=== PATIENT | female | born 1935 | race Caucasian/White ===

== ENCOUNTER 2017-09-09 10:28 | Inpatient (IN) | payer OTHER, MEDICARE ==
[~2017-09-09] VITALS: Ht 165.1 cm; Wt 54.4 kg
--- NOTE | ~2017-09-09 | EKG ---
[address] [place] [address] ELECTROCARDIOGRAM REPORT Name: LUNABERTHAMIGUELITO LEIGH Room #: 404-P [facility] IN M.R.#: [id number] Admission: 09/09/17 Attend Phys: Thaddeus Melvin MD Discharge: Date of : 31 Report #: [id number] THIS REPORT FOR: //name// [facility] Test Date: 2017-09-10 Test Time: 20:24:13 Pat Name: MIGUELITO ELIAS Department: Room: 404 Gender: F Title Department Manager: JLAMBPANCHO : 1935 Requested By: Thaddeus Melvin Order Number: [id number] MD: Rajinder Gar Measurements Intervals [place] Rate: 135 P: -2 MD: 84 QRS: -51 QRSD: 86 T: 88 QT: 332 QTc: 498 Interpretive Statements Sinus tachycardia Leftward axis Anteroseptal infarct, old Nonspecific ST and T wave abnormality Compared to ECG 03/13/2016 14:20:40 Atrial premature complexes are no longer present nonspecific change in the ST and T-wave segments Electronically Signed On 09-11-2017 8:06:43 CDT by Rajinder Gar [email or web address] <ELECTRONICALLY SIGNED> By: Rajinder Gar MD, [facility] 09/11/17805 23 23 Rajinder Gar MD, [facility] /EPI
[~2017-09-09 10:28] MED LIST: ALLEGRA ALLERG180 MG PO; ARICEPT 5 MG TAB5 MG PO; ATORVASTATIN CA80 MG PO; BACTRIM DS TAB1 EACH PO; CELEBREX 200 M200 M1 PO; LEVOTHYROXIN0.125 M1 PO; LIDODERM 5%1 PATC1 TRANSDERM; MACROBID 100 M100 M1 PO; NAMENDA XR PO; NORCO 5-325 TA1 EACH PO; NORVASC5 MG PO; POTASSIUM20 PO; PROTONIX40 M1 PO; XYZAL5 MG PO; ZOFRAN ODT4 MG PO; ZOLOFT50 MG PO; [UNRECOGNIZED DRUG - OTHER] PO
[2017-09-09 10:29] VITALS: BP 177/129
[2017-09-09 12:05] LABS: ABSOLUTE NEUTROPHILS 10.5 thou/uL (1.4-8.2); BASOPHILS 0.1 % (0.0-2.0); HEMATOCRIT 41.2 % (37.0-47.0); HEMOGLOBIN 13.8 gm/dL (12.0-15.0); MCH 33.3 pg (26.0-34.0); MCHC 33.4 g/dL (28.0-37.0); MCV 99.5 fL (80.0-100.0); MONOCYTES 8.6 % (1.0-8.0); PLATELET COUNT 151 thou/uL (150-400); POLYS 86.3 % (36.0-66.0); RBC 4.14 mil/uL (4.20-5.00); RDW 13.9 % (10.5-14.5); WBC 12.1 thou/uL (4.0-11.0)
[2017-09-09 12:07] LABS: CALCIUM 9.4 mg/dL (8.5-10.1); CREATININE 1.1 mg/dL (0.6-1.0); POTASSIUM 4.5 mmol/L (3.5-5.1)
[2017-09-09 12:13] LABS: ALBUMIN 3.9 g/dL (3.4-5.0); TOTAL BILIRUBIN 0.7 mg/dL (<0.1-1.0); TOTAL PROTEIN 7.4 g/dL (6.4-8.2)
[2017-09-09 12:20] LABS: APTT 22.2 Seconds (24.5-32.8); PROTIME 10.7 Seconds (9.3-11.4)
[2017-09-09 17:34] VITALS: BP 138/76
[2017-09-09 17:48] LABS: TSH 7.656 uIU/mL (0.358-3.740)
[2017-09-09 18:48] VITALS: BP 146/87
[2017-09-09 20:00] VITALS: BP 142/87
[2017-09-10 04:00] VITALS: BP 138/75; BP 156/77
[2017-09-10 05:07] LABS: CALCIUM 8.9 mg/dL (8.5-10.1); CREATININE 0.9 mg/dL (0.6-1.0); MAGNESIUM 1.1 mg/dL (1.8-2.4)
[2017-09-10 05:10] LABS: HEMATOCRIT 36.4 % (37.0-47.0); HEMOGLOBIN 12.2 gm/dL (12.0-15.0); MCH 33.8 pg (26.0-34.0); MCHC 33.6 g/dL (28.0-37.0); MCV 100.7 fL (80.0-100.0); PLATELET COUNT 134 thou/uL (150-400); RBC 3.62 mil/uL (4.20-5.00)
[2017-09-10 05:22] LABS: POTASSIUM 3.3 mmol/L (3.5-5.1)
[2017-09-10 07:52] VITALS: BP 168/88
[2017-09-10 08:20] LABS: ABSOLUTE NEUTROPHILS 7.1 thou/uL (1.4-8.2)
[2017-09-10 08:21] LABS: ANISOCYTOSIS 1+; LARGE PLATELETS FEW
[2017-09-10 16:49] VITALS: BP 176/76
[2017-09-10 21:08] VITALS: BP 145/87
[2017-09-11 04:12] VITALS: BP 160/90
[2017-09-11 05:33] LABS: HEMATOCRIT 35.5 % (37.0-47.0); MCHC 33.7 g/dL (28.0-37.0); RBC 3.52 mil/uL (4.20-5.00); RDW 14.1 % (10.5-14.5)
[2017-09-11 05:56] LABS: ALBUMIN 2.6 g/dL (3.4-5.0); ANION GAP 13 mmol/L (7-16); BUN 14 mg/dL (7-18); CALCIUM 8.3 mg/dL (8.5-10.1); CHLORIDE 104 mmol/L (98-107); CHOLESTEROL 164 mg/dL (<200); CO2 19 mmol/L (21-32); CREATININE 0.6 mg/dL (0.6-1.0); GLUCOSE 99 mg/dL (74-106); HDL CHOLESTEROL 116 mg/dL (>40); LDL CHOLESTEROL 36 mg/dL (<100); POTASSIUM 3.5 mmol/L (3.5-5.1); SGOT 101 U/L (15-37); SGPT 58 U/L (30-65); SODIUM 136 mmol/L (136-145); TC:HDL 1.4 Ratio (Not establshd); TOTAL BILIRUBIN 0.9 mg/dL (<0.1-1.0); TOTAL PROTEIN 6.1 g/dL (6.4-8.2); TRIGLYCERIDE 64 mg/dL (<150); VLDL 13 mg/dL (<40)
[2017-09-11 05:58] LABS: SERUM ASSESSMENT Clear
[2017-09-11 09:27] VITALS: BP 160/90
[2017-09-11 12:28] VITALS: BP 141/84
[2017-09-11 16:21] VITALS: BP 146/75
[2017-09-11 19:17] VITALS: BP 167/67
[2017-09-12 04:57] VITALS: BP 157/66
[2017-09-12 05:41] LABS: CALCIUM 8.6 mg/dL (8.5-10.1); CREATININE 0.6 mg/dL (0.6-1.0); MAGNESIUM 1.5 mg/dL (1.8-2.4); POTASSIUM 3.1 mmol/L (3.5-5.1)
[2017-09-12 07:38] VITALS: BP 176/92
[2017-09-12 16:53] VITALS: BP 164/83
[2017-09-12 19:33] VITALS: BP 145/75
[2017-09-13 04:00] VITALS: BP 167/72
[2017-09-13 08:39] VITALS: BP 190/77
[2017-09-13 08:46] VITALS: BP 190/77
[2017-09-13 16:05] VITALS: BP 167/96
[2017-09-13 20:00] VITALS: BP 163/92
[2017-09-14 07:40] VITALS: BP 176/118
[2017-09-14 10:17] VITALS: BP 155/88
[2017-09-14] MEDS ORDERED: ZOLOFT100 MG PO (11:10)
== END 2017-09-14 13:18 | DRG 562 ==
LOC: ER 10:28 → 4N 15:05 → EROBS 15:05 → 4N 18:04 → ENTRNSPT 09-13 15:27 → EDTRNSPTSTS 09-13 15:42 → SICU 09-13 16:40
PROVIDERS: Emergency Medicine; Hospitalist; Nurse Practitioner; Registered Nurse
PROC: 2W38X1Z Immobilization of Right Upper Extremity using Splint (ICD-10-PCS; principal; 2017-09-09)
PROC: 0RSJXZZ Reposition Right Shoulder Joint, External Approach (ICD-10-PCS; principal; 2017-09-09)
DX: S42.141A Displaced fracture of glenoid cavity of scapula, right shoulder, initial encounter for closed fracture (principal); G93.41 Metabolic encephalopathy; N17.9 Acute kidney failure, unspecified; S22.49XA Multiple fractures of ribs, unspecified side, initial encounter for closed fracture; M62.82 Rhabdomyolysis; E03.9 Hypothyroidism, unspecified; E78.5 Hyperlipidemia, unspecified; K21.9 Gastro-esophageal reflux disease without esophagitis; M19.90 Unspecified osteoarthritis, unspecified site; S43.004A Unspecified dislocation of right shoulder joint, initial encounter; R00.0 Tachycardia, unspecified; G30.9 Alzheimer's disease, unspecified; F02.80 Dementia in other diseases classified elsewhere, unspecified severity, without behavioral disturbance, psychotic disturbance, mood disturbance, and anxiety; I12.9 Hypertensive chronic kidney disease with stage 1 through stage 4 chronic kidney disease, or unspecified chronic kidney disease; E86.0 Dehydration; F41.9 Anxiety disorder, unspecified; Z66 Do not resuscitate; N18.9 Chronic kidney disease, unspecified; Z60.2 Problems related to living alone; Z88.6 Allergy status to analgesic agent; Z79.899 Other long term (current) drug therapy; W18.39XA Other fall on same level, initial encounter; Y93.89 Activity, other specified; Y92.000 Kitchen of unspecified non-institutional (private) residence as the place of occurrence of the external cause; Y99.8 Other external cause status
CPT/HCPCS: 10790; 15002

== ENCOUNTER 2017-10-06 20:48 | Emergency (ER) | payer OTHER, MEDICARE ==
[~2017-10-06] VITALS: Ht 165.1 cm; Wt 54.4 kg
[~2017-10-06 20:48] MED LIST changes: +ZOLOFT100 MG PO
== END 2017-10-07 00:15 | disposition home or self-care (01) ==
LOC: ER 20:48
DX: S01.01XA Laceration without foreign body of scalp, initial encounter (principal); I10 Essential (primary) hypertension; E78.5 Hyperlipidemia, unspecified; E03.9 Hypothyroidism, unspecified; K21.9 Gastro-esophageal reflux disease without esophagitis; M19.90 Unspecified osteoarthritis, unspecified site; Z88.5 Allergy status to narcotic agent; W18.2XXA Fall in (into) shower or empty bathtub, initial encounter; Y93.89 Activity, other specified; Y92.121 Bathroom in nursing home as the place of occurrence of the external cause; Y99.8 Other external cause status

== ENCOUNTER 2018-03-14 10:10 | Inpatient (IN) | payer OTHER, MEDICARE ==
[2018-03-14] VITALS (7 sets, daily range): BP systolic 122–181; BP diastolic 56–113
[~2018-03-14] VITALS: Ht 165.1 cm; Wt 50.6 kg
--- NOTE | ~2018-03-14 | 2DMMODE ---
[facility] [place] [employer] [place] [address] 2 D/M-MODE ECHOCARDIOGRAM Name: MIGUELITO ELIAS Shelley Room #: 170-11 ADM IN [facility].#: [id number] Admission: 03/14/18 Attend Phys: Antoni Stein MD Discharge: Date of : 31 Date of Service: 03/14/18 1545 Report #: [id number] THIS REPORT FOR: //name// APPROVED REPORT Study performed: 03/14/2018 14:46:23 EXAM: Comprehensive 2D, Doppler, and color-flow Echocardiogram Patient Location: ER Status: routine BSA: 1.50 HR: 73 bpm BP: 161/80 mmHg Rhythm: NSR/irregular Other Information Study Quality: Adequate/limited mobility, low windows Indications Systolic murmur. Hx: HTN, HLP 2D Dimensions RVDd: 30.78 mm IVSd: 11.00 (7-11mm) LVOT Diam: 20.06 (18-24mm) LVDd: 36.00 mm PWd: 11.00 (7-11mm) LVDs: 23.78 (25-40mm) Aortic Root: 33.07 mm Volumes Left Atrial Volume (Systole) Single Plane 4CH: 48.25 mL Single Plane 2CH: 54.89 mL LA ESV Index: 37.00 mL/m2 Aortic Valve AoV Peak Reilly.: 3.35 m/s AO Peak Gr.: 44.95 mmHg LVOT Max P.51 mmHg AO Mean Gr.: 24.38 mmHg AO V2 Mean: 2.32 m/s LVOT Max V: 0.79 m/s AO V2 VTI: 79.28 cm CAROL Vmax: 0.75 cm2 Mitral Valve [facility] [place] [address] 2 D/M-MODE ECHOCARDIOGRAM Name: MIGUELITO ELIAS Room #: 170-11 [facility] IN [facility].#: [id number] Admission: 03/14/18 Attend Phys: Antoni Stein MD Discharge: Date of : 31 Date of Service: 03/14/18 1545 Report #: [id number] E/A Ratio: 0.6 MV Decel. Time: 232.43 ms MV E Max Reilly.: 0.72 m/s MV A Reilly.: 1.29 m/s MV PHT: 67.40 ms IVRT: 92.27 ms Tricuspid Valve TR Peak Reilly.: 2.50 m/s RAP Estimate: 5.00 mmHg TR Peak Gr.: 25.04 mmHg PA Pressure: 30.00 mmHg Left Ventricle The left ventricle is normal size. There is normal LV segmental wall motion. Mild concentric left ventricular hypertrophy. Left ventricular systolic function is normal. LVEF is 60-65%. Mild diastolic dysfunction is present (impaired relaxation pattern). Right Ventricle The right ventricle is normal size. The right ventricular systolic function is normal. Atria Left atrium is mildly dilated. The right atrium size is normal. Aortic Valve Poorly imaged. The aortic valve is appears heavily calcified, moderately severe to severe stenosis. There is probable severe valvular aortic stenosis. Calculated aortic valve area is 0.7 cm2 with maximum pressure gradient of 45 mmHg and mean pressure gradient of 24 mmHg. Mitral Valve Mitral valve leaflets are moderately thickened. Moderate mitral annular calcification. Mild mitral regurgitation. No evidence of mitral valve stenosis. Tricuspid Valve The tricuspid valve is normal in structure. Mild tricuspid regurgitation. Estimated PAP is 30mmHg. Pulmonic Valve Pulmonic valve is not well visualized. [facility] [address] [address] 2 D/M-MODE ECHOCARDIOGRAM Name: MIGUELITO ELIAS Room #: 170-11 [facility] IN M.R.#: [id number] Admission: 03/14/18 Attend Phys: Antoni Stein MD Discharge: Date of : 31 Date of Service: 03/14/18 1545 Report #: [id number] Great Vessels The aortic root is normal in size. Ascending aorta is not well visualized. IVC is normal in size and collapses >50% with inspiration. Pericardium There is no pericardial effusion. <Conclusion> Left ventricular systolic function is normal. Mild concentric left ventricular hypertrophy. There is normal LV segmental wall motion. LVEF is 60-65%. Mild diastolic dysfunction Poorly imaged. The aortic valve is appears heavily calcified, moderately severe to severe stenosis. Calculated aortic valve area is 0.7 cm2 with maximum pressure gradient of 45 mmHg and mean pressure gradient of 24 mmHg. Mitral valve leaflets are moderately thickened. Moderate mitral annular calcification. Mild mitral regurgitation. Mild tricuspid regurgitation. Estimated pulmonary artery pressure of 30mmHg. There is no pericardial effusion. <ELECTRONICALLY SIGNED> By: Rajinder Gar MD, FACC 03/14/18 1545 1545 1545 Rajinder Gar MD, FACC /INF
--- NOTE | ~2018-03-14 | EKG ---
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: JACQUELINE : 1935 Requested By: Boom Davis Order Number: [id number] MD: Rajinder Gar Measurements Intervals [place] Rate: 82 P: -26 NM: 187 QRS: -49 QRSD: 89 T: 16 QT: 385 QTc: 450 Interpretive Statements Sinus rhythm Atrial premature complexes LAD Nonspecific T wave abnormality Compared to ECG 09/10/2017 20:24:13 Atrial premature complex(es) now present Sinus tachycardia no longer present Electronically Signed On 03-17-2018 8:57:35 CDT by Rajinder Gar [email or web address] <ELECTRONICALLY SIGNED> By: Rajinder Gar MD, FACC 03/17/18 0857 1114 1114 Rajinder Gar MD, [facility] /EPI
--- NOTE | ~2018-03-14 | EKG ---
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 Duty Custodian: Indra COVARRUBIAS : 1935 Requested By: Niki Galindo Order Number: [id number] MD: Rajinder Gar Measurements Intervals [place] Rate: 87 P: -20 AR: 165 QRS: -37 QRSD: 92 T: 40 QT: 401 QTc: 483 Interpretive Statements Sinus rhythm Atrial premature complexes Left axis deviation Compared to ECG 03/15/2018 11:14:24 Left-axis deviation now present T-wave abnormality no longer present Electronically Signed On 03-17-2018 17:09:01 CDT by Rajinder Gar [email or web address] <ELECTRONICALLY SIGNED> By: Rajinder Gar MD, [facility] 03/17/18 1709 1129 [id number] Rajinder Gar MD, [facility] /EPI
--- NOTE | ~2018-03-14 | EKG ---
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: Indra COVARRUBIAS : 1935 Requested By: Antoni Stein Order Number: [id number] MD: Rajinder Gar Measurements Intervals [place] Rate: 114 P: -23 [place]: 171 QRS: -52 QRSD: 85 T: 38 QT: 347 QTc: 478 Interpretive Statements Sinus tachycardia frequent atrial premature complexes Left anterior fascicular block Abnormal R-wave progression, late transition Compared to ECG 03/17/2018 11:29:25 No significant change was found Electronically Signed On 03-19-2018 8:45:50 CDT by Rajinder Gar [email or web address] <ELECTRONICALLY SIGNED> By: Rajinder Gar MD, [facility] 03/19/18 0845 [id number] Rajinder Gar MD, [facility] /EPI
[2018-03-14] MEDS ORDERED: LEVOCETIRIZINE D5 MG PO (10:24)
[2018-03-14 12:05] LABS: ABSOLUTE NEUTROPHILS 5.3 thou/uL (1.4-8.2); BASOPHILS 0.5 % (0.0-2.0); HEMATOCRIT 36.1 % (37.0-47.0); MCH 32.9 pg (26.0-34.0); MCHC 33.3 g/dL (28.0-37.0); PLATELET COUNT 154 thou/uL (150-400); POLYS 67.5 % (36.0-66.0); RBC 3.65 mil/uL (4.20-5.00); RDW 15.7 % (10.5-14.5); WBC 7.8 thou/uL (4.0-11.0)
[2018-03-14 12:22] LABS: ANION GAP 14 mmol/L (7-16); BUN 23 mg/dL (7-18); CALCIUM 9.8 mg/dL (8.5-10.1); CHLORIDE 104 mmol/L (98-107); CO2 24 mmol/L (21-32); GLUCOSE 96 mg/dL (74-106); POTASSIUM 3.7 mmol/L (3.5-5.1); SODIUM 142 mmol/L (136-145)
[2018-03-14 12:30] LABS: SGOT 47 U/L (15-37); SGPT 44 U/L (30-65); TOTAL BILIRUBIN 0.4 mg/dL (<0.1-1.0); TOTAL PROTEIN 7.3 g/dL (6.4-8.2); TROPONIN-I <0.06 ng/mL (<0.06)
[2018-03-14 21:24] LABS: MAGNESIUM 1.5 mg/dL (1.8-2.4); PHOSPHORUS 4.6 mg/dL (2.5-4.9)
[2018-03-15 01:06] LABS: FOLIC ACID 91.8 ng/mL (8.6-58.9)
[2018-03-15 06:20] LABS: HEMATOCRIT 39.6 % (37.0-47.0); HEMOGLOBIN 13.4 gm/dL (12.0-15.0); MCH 33.2 pg (26.0-34.0); MCHC 33.9 g/dL (28.0-37.0); RBC 4.05 mil/uL (4.20-5.00); RDW 15.6 % (10.5-14.5); WBC 11.4 thou/uL (4.0-11.0)
[2018-03-15 06:36] LABS: CALCIUM 9.6 mg/dL (8.5-10.1); CREATININE 0.9 mg/dL (0.6-1.0); POTASSIUM 3.7 mmol/L (3.5-5.1)
[2018-03-15 07:41] VITALS: BP 145/69
[2018-03-15 15:10] VITALS: BP 110/52
[2018-03-15 19:38] VITALS: BP 124/62
[2018-03-16 04:38] VITALS: BP 146/80
[2018-03-16 06:42] LABS: CALCIUM 9.1 mg/dL (8.5-10.1); CREATININE 0.9 mg/dL (0.6-1.0); MAGNESIUM 1.1 mg/dL (1.8-2.4); PHOSPHORUS 4.3 mg/dL (2.5-4.9); POTASSIUM 3.3 mmol/L (3.5-5.1)
[2018-03-16 08:17] VITALS: BP 172/57
[2018-03-16 15:32] VITALS: BP 103/45
[2018-03-16 19:43] VITALS: BP 145/88
[2018-03-17 02:53] VITALS: BP 131/56
[2018-03-17 06:11] LABS: CALCIUM 9.8 mg/dL (8.5-10.1)
[2018-03-17 09:00] VITALS: BP 136/83
[2018-03-17 17:23] VITALS: BP 136/83
[2018-03-17 19:41] VITALS: BP 147/78
[2018-03-17 23:30] VITALS: BP 147/78
[2018-03-18 04:32] VITALS: BP 167/84
[2018-03-18 07:33] VITALS: BP 139/82
[2018-03-18 17:16] VITALS: BP 136/71
[2018-03-18 19:52] VITALS: BP 138/88
[2018-03-19] VITALS (7 sets, daily range): BP systolic 96–157; BP diastolic 61–98
[2018-03-20 08:57] VITALS: BP 149/78
[2018-03-20 16:07] VITALS: BP 112/54
[2018-03-20 20:13] VITALS: BP 149/92
[2018-03-21 04:32] VITALS: BP 117/84
[2018-03-21 07:54] VITALS: BP 147/88
[2018-03-21 11:33] VITALS: BP 147/65
[2018-03-21 14:33] VITALS: BP 147/65
[2018-03-21 15:55] LABS: HEMATOCRIT 38.4 % (37.0-47.0); HEMOGLOBIN 12.9 gm/dL (12.0-15.0); MCH 33.3 pg (26.0-34.0); MCHC 33.5 g/dL (28.0-37.0); MCV 99.1 fL (80.0-100.0); RBC 3.87 mil/uL (4.20-5.00); RDW 14.9 % (10.5-14.5); WBC 10.4 thou/uL (4.0-11.0)
[2018-03-21 16:02] LABS: CALCIUM 10.3 mg/dL (8.5-10.1); CREATININE 1.1 mg/dL (0.6-1.0); MAGNESIUM 1.5 mg/dL (1.8-2.4); POTASSIUM 3.8 mmol/L (3.5-5.1)
[2018-03-21 16:33] VITALS: BP 129/64
== END 2018-03-21 17:52 | DRG 154 ==
LOC: ER 10:10 → 4W 13:45 → EROBS 13:45 → 4W 15:55
PROVIDERS: Hospitalist; Nurse Practitioner Family; Student in an Organized Health Care Education/Training Program
PROC: 09QKXZZ Repair Nasal Mucosa and Soft Tissue, External Approach (ICD-10-PCS; principal; 2018-03-14)
PROC: 0CQ1XZZ Repair Lower Lip, External Approach (ICD-10-PCS; principal; 2018-03-14)
DX: S02.2XXA Fracture of nasal bones, initial encounter for closed fracture (principal); G93.41 Metabolic encephalopathy; E44.0 Moderate protein-calorie malnutrition; F03.91 Unspecified dementia, unspecified severity, with behavioral disturbance; Z68.1 Body mass index [BMI] 19.9 or less, adult; I35.0 Nonrheumatic aortic (valve) stenosis; I10 Essential (primary) hypertension; E78.5 Hyperlipidemia, unspecified; E03.9 Hypothyroidism, unspecified; K21.9 Gastro-esophageal reflux disease without esophagitis; M19.90 Unspecified osteoarthritis, unspecified site; S00.83XA Contusion of other part of head, initial encounter; R01.1 Cardiac murmur, unspecified; Z60.2 Problems related to living alone; E83.42 Hypomagnesemia; E87.6 Hypokalemia; F32.9 Major depressive disorder, single episode, unspecified; Z88.6 Allergy status to analgesic agent; W18.39XA Other fall on same level, initial encounter; Y93.89 Activity, other specified; Y92.098 Other place in other non-institutional residence as the place of occurrence of the external cause; Y99.8 Other external cause status
CPT/HCPCS: 10040; 10045